=== PATIENT | male | born 1990 | race Caucasian/White ===

== ENCOUNTER 2019-03-05 21:17 | Emergency (ER) | payer MEDICAID ==
[~2019-03-05] VITALS: Ht 198.1 cm; Wt 108.9 kg
--- NOTE | 2019-03-05 21:30 | NUR ---
Pt arrived at the ER with c/o edema, pain on right arm x 10-12 days, Pt finished antibiotics: Keflex and clindamycin 5 days ago.
--- NOTE | 2019-03-05 21:58 | NUR ---
Dr. Cordon on bedside for MSE.
--- NOTE | 2019-03-05 22:03 | NUR ---
Informed radiology department jennifer García for US on right arm.
--- NOTE | 2019-03-05 22:35 | NUR ---
Gave patient a sandwich per his request. Watching TV. In no acute distress. No other complain at this time.
[2019-03-05 22:42] LABS: BASOPHILS # (AUTO) 0.1 K/uL (0.0-8.0); EOSINOPHILS # (AUTO) 0.2 K/uL (0.0-0.7); EOSINOPHILS % (AUTO) 2.3 % (0.0-7.0); HEMATOCRIT 37.2 % (36.7-47.1); HEMOGLOBIN 12.7 g/dL (12.5-16.3); LYMPHOCYTES # (AUTO) 1.6 K/uL (20.0-40.0); LYMPHOCYTES % (AUTO) 18.8 % (20.5-51.5); MEAN CORPUSCULAR HEMOGLOBIN 30.3 uug (23.8-33.4); MEAN CORPUSCULAR HGB CONC 34 g/dL (32.5-36.3); MEAN CORPUSCULAR VOLUME 88.8 fL (73.0-96.2); MONOCYTES # (AUTO) 0.5 K/uL (2.0-10.0); MONOCYTES % (AUTO) 6.6 % (0.0-11.0); NEUTROPHILS # (AUTO) 5.9 K/uL (1.8-8.9); NEUTROPHILS % (AUTO) 71.3 % (38.5-71.5); PLATELET COUNT (AUTO) 446 K/uL (152-348); RED BLOOD CELL COUNT(AUTO) 4.19 MIL/uL (4.06-5.63); WHITE BLOOD COUNT (AUTO) 8.3 K/uL (3.6-10.2)
[2019-03-05 22:43] LABS: CREATININE 0.9 mg/dL (0.6-1.3); POTASSIUM 3.8 mmol/L (3.5-5.1)
[2019-03-05 22:57] LABS: BILIRUBIN,DIRECT 0.1 mg/dL (0.0-0.2); BILIRUBIN,TOTAL 0.3 mg/dL (0.2-1.0); TOTAL PROTEIN, SERUM 7.1 g/dL (6.4-8.2)
--- NOTE | 2019-03-05 23:23 | NUR ---
Dr. Cordon on bedside.
[2019-03-05] MEDS ORDERED: SULFAMETH/TRIMETH 800/160 MG TABLET ONE (23:29)
[2019-03-05] MEDS ORDERED: SULFAMETH/TRIMETH 800/160 MG TABLET PO ONE (23:30)
--- NOTE | 2019-03-05 23:34 | NUR ---
Patient discharged to home in stable conditon. Written and verbal after care instructions given. Patient verbalizes understanding of instructions. Pt ambulated out of the ER with steady gait. All belongings with pt.
[2019-03-05 23:35] VITALS: BP 139/80
== END 2019-03-05 23:36 | disposition home or self-care (01) ==
LOC: ER 21:22
DX: I80.8 Phlebitis and thrombophlebitis of other sites (principal); B95.62 Methicillin resistant Staphylococcus aureus infection as the cause of diseases classified elsewhere; F11.10 Opioid abuse, uncomplicated; F14.10 Cocaine abuse, uncomplicated; Z88.8 Allergy status to other drugs, medicaments and biological substances
CPT/HCPCS: 36415; 70030-TC; 83605; 85025; 87040; A4663